=== PATIENT | female | born 1985 | race Caucasian/White ===

== ENCOUNTER 2016-10-23 19:34 | Emergency (ER) | payer BC ==
[2016-10-23] MEDS ORDERED: OPTIRAY 350 100 ML VIAL HMH IV ONE (19:35)
[2016-10-24] MEDS ORDERED: ONDANSETRON 4 MG VIAL ONE (00:44)
[2016-10-24] MEDS ORDERED: DILAUDID 1 MG/ML AMP ONE (00:46)
[2016-10-24] MEDS ORDERED: SODIUM CHLORIDE 0.9% 1,000 ML ONE (00:46)
== END 2016-10-24 03:40 | disposition home or self-care (01) ==
LOC: ER 19:34
CPT/HCPCS: 36415; 74177; 80053; 81001; 83690; 85025; 96361; 96374; 96375